=== PATIENT | female | born 1995 | race African-American/Black ===

== ENCOUNTER 2016-07-24 21:11 | Emergency (ER) | payer SELFPAY ==
[~2016-07-24 21:11] MED LIST: CEPH500C3 PO; NORC7.5T PO; WALKER STANDARD
[2016-07-24 21:13] VITALS: BP 121/77; PULSE 57; RESP 16; TEMP 98; O2SAT 99
[2016-07-24] MEDS ORDERED: cefTRIAXone 250 MG VIAL IM ONE (21:45)
[2016-07-24] MEDS ORDERED: AZITHROMYCIN PWD FOR SUSP 1 GM PACKET PO ONE (21:45)
[2016-07-24] MEDS ORDERED: LIDOCAINE HCL 1% 50 ML VIAL INFIL ONE (22:00)
[2016-07-24 22:05] LABS: BLOOD, URINE NEG (NEG); COMMENT (UR) CULT NOT INDICATED; CULTURE IF INDICATED CULT NOT INDICATED; GLUCOSE,URINE NEG (NEG); KETONE, URINE NEG (NEG); NITRITE,URINE NEG (NEG); SQUAMOUS EPITHELIAL CELL URINE 5 /hpf (0-5); URINE COLOR LIGHT-YELLOW (YELLW/STRAW)
--- NOTE | 2016-07-24 22:27 | PD ---
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 She says she noticed a lesion on her vagina and was concerned it was herpes. She also reports some vaginal discharge. She denies abdominal pain, nausea or vomiting. She denies dysuria. She denies fever or chills. She is sexually active and does not use protection. PFSH Past Medical History Blood Disorders: No Cancer: No Cardiovascular Problems: No Diminished Hearing: No Endocrine: No Gastrointestinal Disorders: No Genitourinary: No Immune Disorder: No Musculoskeletal: No Neurologic: No Psychiatric: No Reproductive: No Respiratory: No Immunizations Current: Yes Influenza Vaccination: No ?: Unknown LMP: PT STATES LAST WEEK Past Surgical History Other Surgery: No Social History Alcohol Use: No Tobacco Use: No Substance Use: Yes (marijuana) Allergies-Medications (Allergen,Severity, Reaction): Coded Allergies: No Known Allergies (Unverified , 07/24/16) Reported Meds & Prescriptions Reported Meds & Active Scripts Active No Active Prescriptions or Reported Medications Review of Systems Except as stated in HPI: all other systems reviewed are Neg General / Constitutional: No: Fever, Chills Eyes: No: Blurred Vision HENT: No: Headaches, Lightheadedness Cardiovascular: No: Chest Pain or Discomfort Respiratory: No: Shortness of Breath Gastrointestinal: No: Nausea, Vomiting, Abdominal Pain Genitourinary: Positive: Discharge, No: Dysuria Skin: No Change in Pigmentation Neurologic: No: Weakness, Dizziness Physical Exam Narrative GENERAL: Awake and alert in no acute distress. SKIN: Warm and dry. HEAD: Atraumatic. Normocephalic. EYES: Pupils equal and round. No scleral icterus. ENT: Mucous membranes pink and moist. NECK: Trachea midline. No JVD. CARDIOVASCULAR: Regular rate and rhythm. No murmur appreciated. RESPIRATORY: No accessory muscle use. Clear to auscultation. Breath sounds equal bilaterally. GASTROINTESTINAL: Abdomen soft, non-tender, nondistended. PELVIC: abrasion just above the clitoris. thick white discharge. no cervical lesions. no cmt MUSCULOSKELETAL: No obvious deformities. No clubbing. No cyanosis. No edema. NEUROLOGICAL: Awake and alert. No obvious cranial nerve deficits. Motor grossly within normal limits. Normal speech. PSYCHIATRIC: Appropriate mood and affect; insight and judgment normal. Data Data Last Documented VS Vital Signs Date Time Temp Pulse Resp B/P Pulse Ox O2 Delivery O2 Flow Rate FiO2 07/24/16 21:13 98.0 57 16 121/77 99 Room Air Orders Urinalysis - C+S If Indicated (07/24/16 21:33) Wet Prep Profile (07/24/16 21:33) Gc And Chlamydia Pcr (07/24/16 21:33) Ceftriaxone Inj (Rocephin Inj) (07/24/16 21:45) Azithromycin Powd Pack (Zithromax Powd P (07/24/16 21:45) Lidocaine 1% Inj (50 Ml) (Xylocaine 1% I (07/24/16 22:00) Labs Laboratory Tests Test 07/24/16 21:42 Urine Color LIGHT-YELLOW Urine Turbidity CLEAR Urine pH 6.0 Urine Specific [place] 1.010 Urine Protein NEG mg/dL Urine Glucose (UA) NEG mg/dL Urine Ketones NEG mg/dL Urine Occult Blood NEG Urine Nitrite NEG Urine Bilirubin NEG Urine Urobilinogen LESS THAN 2.0 MG/DL Urine Leukocyte Esterase MOD Urine RBC 1 /hpf Urine WBC 2 /hpf Urine Squamous Epithelial 5 /hpf Cells Microscopic Urinalysis Comment CULT NOT INDICATED Clue Cells (Wet Prep) NONE SEEN Vaginal Trichomonas (Wet Prep) NONE SEEN Vaginal Yeast (Wet Prep) NONE SEEN Chlamydia trachomatis DNA NOT DETECTED (PCR) Neisseria gonorrhoeae DNA NOT DETECTED (PCR) MDM Medical Decision Making Medical Screen Exam Complete: Yes Emergency Medical Condition: Yes Differential Diagnosis A UTI versus GC/chlamydia versus herpes versus vaginal irritation Narrative Course Patient is a 20-year-old female who comes in with vaginal complaints. Exam shows an irritation just above the clitoris. There is whitish discharge. Swab sent to check for GC/chlamydia. Patient treated prophylactically with azithromycin and Rocephin. Patient advised to use protection when having intercourse. Advised to refrain from sexual intercourse for the next week. Diagnosis Primary Impression: Vaginal discharge Patient Instructions: Cervicitis (ED), General Instructions Additional Instructions: Follow up with gynecology. Avoid sexual intercourse for the next week. You will receive a letter if your testing for gonorrhea and chlamydia testing is positive. Your partner will need to be treated if it is positive. You have already been treated. Return to the ED as needed for any worsening symptoms. Scripts No Active Prescriptions or Reported Meds Disposition: 01 DISCHARGE HOME Condition: Stable Nola Loza MD Jul 24, 2016 22:26
[2016-07-25 00:09] LABS: CHLAMYDIA PCR NOT DETECTED (NOT DETECT); NEISSERIA PCR NOT DETECTED (NOT DETECT)
== END 2016-07-24 22:35 | disposition home or self-care (01) ==
LOC: NEPC 21:11
DX: N89.8 Other specified noninflammatory disorders of vagina (principal)
CPT/HCPCS: 81001; 87210; 87491; 87591; 96372; 99283; J0696

== ENCOUNTER 2016-10-25 13:41 | Emergency (ER) | payer OTHER ==
[~2016-10-25] VITALS: Ht 162.6 cm; Wt 75.0 kg
[2016-10-25 13:42] VITALS: BP 130/67; PULSE 72; RESP 15; TEMP 98; O2SAT 100
[2016-10-25 15:11] LABS: BACTERIA, URINE OCC /hpf; BLOOD, URINE NEG (NEG); COMMENT (UR) CULT NOT INDICATED; CULTURE IF INDICATED CULT NOT INDICATED; GLUCOSE,URINE NEG (NEG); KETONE, URINE NEG (NEG); NITRITE,URINE NEG (NEG); SQUAMOUS EPITHELIAL CELL URINE 4 /hpf (0-5); URINE COLOR YELLOW (YELLW/STRAW)
--- NOTE | 2016-10-25 15:28 | PD ---
HPI Chief Complaint: Related Problem Time Seen by Provider: 15:24 Travel History International Travel<30 days: No Contact w/Intl Traveler<30days: No Traveled to known affect area: No History of Present Illness HPI 20-year-old female that presents to the ED for evaluation of possible . Per patient last menstrual period Was about a month ago. Per patient she currently has a 6-month-old she's been having unprotected sex. Per patient she did a test at home because today she was having some lower abdominal cramping similar to what she had when she was and did test and it was positive. She comes here essentially to get evaluated for this. Per patient she's also concerning for possible infection in the pelvic area secondary to having unprotected sex. She denies any symptoms other than the abdominal discomfort to the lower abdomen which per patient is not severe and feels similar to her previous . She denies any surgeries to the abdomen. She denies any fevers chills or sweats. No nausea or vomiting. No allergies to medication. Patient denies any other previous pregnancies alert on the last one 6 months ago. She has not seen anybody for this. Per patient the pain is 2 out of 10. PFSH Past Medical History Blood Disorders: No Cancer: No Cardiovascular Problems: No Diminished Hearing: No Endocrine: No Gastrointestinal Disorders: No Genitourinary: No Immune Disorder: No Musculoskeletal: No Neurologic: No Psychiatric: No Reproductive: No Respiratory: No Immunizations Current: Yes ?: LMP: one month ago Past Surgical History Other Surgery: No Social History Alcohol Use: No Tobacco Use: No Substance Use: Yes (marijuana) Allergies-Medications (Allergen,Severity, Reaction): Coded Allergies: No Known Allergies (Unverified , 07/24/16) Reported Meds & Prescriptions Reported Meds & Active Scripts Active Monistat 3 Combination Pa 200-2 mg-% (Miconazole Nitrate Vaginal & W) 1 Kit Kit 1 Mg VAGINAL BID 10 Days Plus Iron 29-1 mg ( Vit-Iron Carbonyl) 1 Tab Tab 1 Tab PO DAILY Review of Systems Except as stated in HPI: all other systems reviewed are Neg Physical Exam Narrative GENERAL: SKIN: Warm and dry. HEAD: Atraumatic. Normocephalic. EYES: Pupils equal and round. No scleral icterus. No injection or drainage. ENT: No nasal bleeding or discharge. Mucous membranes pink and moist. NECK: Trachea midline. No JVD. CARDIOVASCULAR: Regular rate and rhythm. RESPIRATORY: No accessory muscle use. Clear to auscultation. Breath sounds equal bilaterally. GASTROINTESTINAL: Abdomen soft, non-tender, nondistended. Hepatic and splenic margins not palpable. Pelvic exam: The with him and nurse present. Patient does have some whitish discharge coming from the vagina but no sign of smell or other deformity. No adnexal tenderness. No cervical tenderness with movement. MUSCULOSKELETAL: Extremities without clubbing, cyanosis, or edema. No obvious deformities. NEUROLOGICAL: Awake and alert. No obvious cranial nerve deficits. Motor grossly within normal limits. Five out of 5 muscle strength in the arms and legs. Normal speech. PSYCHIATRIC: Appropriate mood and affect; insight and judgment normal. Data Data Last Documented VS Vital Signs Date Time Temp Pulse Resp B/P Pulse Ox O2 Delivery O2 Flow Rate FiO2 10/25/16 13:42 98.0 72 15 130/67 100 Orders Urinalysis - C+S If Indicated (10/25/16 14:18) Beta Hcg (Quant/Titer) (10/25/16 14:18) Ed Urine Pregnancytest Poc (10/25/16 14:18) Gc And Chlamydia Pcr (10/25/16 14:23) Wet Prep Profile (10/25/16 14:23) Us Pelvis (Ques Preg/Ectopic) (10/25/16 ) Labs Laboratory Tests Test 10/25/16 14:50 Urine Color YELLOW Urine Turbidity CLEAR Urine pH 7.0 Urine Specific [place] 1.012 Urine Protein NEG mg/dL Urine Glucose (UA) NEG mg/dL Urine Ketones NEG mg/dL Urine Occult Blood NEG Urine Nitrite NEG Urine Bilirubin NEG Urine Urobilinogen LESS THAN 2.0 MG/DL Urine Leukocyte Esterase SMALL Urine RBC 1 /hpf Urine WBC 2 /hpf Urine Squamous Epithelial 4 /hpf Cells Urine Bacteria OCC /hpf Microscopic Urinalysis Comment CULT NOT INDICATED Clue Cells (Wet Prep) NONE SEEN Vaginal Trichomonas (Wet Prep) NONE SEEN Vaginal Yeast (Wet Prep) PRESENT Human Chorionic Gonadotropin, 5336 MIU/ML Quant MDM Medical Decision Making Medical Screen Exam Complete: Yes Emergency Medical Condition: Yes Medical Record Reviewed: Yes Interpretation(s) Wet prep positive for yeast Differential Diagnosis versus ectopic versus yeast infection versus bacterial vaginosis Narrative Course 20-year-old female that presents to the ED for evaluation of and in some abdominal pain. Patient was properly examined and was found to have signs and symptoms consistent with . Patient does have some vaginal discharge and exam but appears to be more normal than not. Culture was taken of it regardless. Culture did show positive for yeast. Patient will be treated for this with Monistat. Labs did show . Ultrasound was ordered as patient he complains some abdominal pain and concern for ectopic was present. Ultrasound was negative for this. Patient was reassured. From blood work patient appears to be about 3-4 weeks . 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 Patient was given prescription for vitamins. See ED worsening symptoms. Follow with PCP. Diagnosis Primary Impression: Vaginal discharge Additional Impression: Normal IUP (intrauterine ) on ultrasound Qualified Code: Z34.91 - Normal IUP (intrauterine ) on ultrasound, first trimester Patient Instructions: General Instructions Additional Instructions: Take medication as prescribed. You're discharged was positive for yeast, Take the Monistat as prescribed. Only take Tylenol for pain as needed. Follow up with OB care. Your about 3-4 weeks . Cannot completely assess how far along you are because fetus is still too small for us date. See ED worsening symptoms. Med/Other Pt SpecificInfo: Prescription(s) given Scripts Miconazole Nitrate Vaginal & W (Monistat 3 Combination Pa 200-2 mg-%)1 Kit Kit1 Mg VAGINAL BID 10 Days Prov:oNla Loza MD 10/25/16 Vit-Iron Carbonyl ( Plus Iron 29-1 mg)1 Tab Tab1 Tab PO DAILY #30 TAB Ref 0 Prov:Nola Loza MD 10/25/16 Disposition: 01 DISCHARGE HOME Condition: Stable Henok Mccarty Oct 25, 2016 15:28
[2016-10-25 15:49] LABS: BETA HCG QUANT 5336 MIU/ML (0-5)
[2016-10-25] MEDS ORDERED: MICO1KIT7 VAGINAL (16:13)
[2016-10-25] MEDS ORDERED: PREN29TA PO (16:13)
--- NOTE | 2016-10-25 16:26 | RADRPT ---
EXAM DATE/TIME: 10/25/2016 15:36 [facility] COMPARISON: No previous studies available for comparison. INDICATIONS : Pelvic pain with . LAB(S): Beta-[facility]C MEDICAL HISTORY : . SURGICAL HISTORY : None. ENCOUNTER: Initial ACUITY: 1 day PAIN SCORE: 3/10 LOCATION: Bilateral pelvis MEASUREMENTS: UTERUS: 9.9 x 6.5 x 4.4 cm ENDOMETRIAL STRIPE: 13 mm RIGHT OVARY: 3.2 x 3.2 x 1.9 cm LEFT OVARY: 3.1 x 2.6 x 2.0 cm FREE FLUID: Yes Trace in posterior cul de sac. CROWN RUMP LENGTH: Non visualized. = WKS DAYS FHR: Non visualized. BPM FINDINGS: Patient declined transvaginal exam. Gestational sac and yolk sac are visualized but no pole is seen. There is a probable corpus luteum cyst right ovary measuring about 2.8 x 2.9 x 2.3 cm. Left ova ry unremarkable. Trace free fluid in the cul-de-sac. CONCLUSION: 1. Examination is positive for gestational sac and yolk sac but no pole is seen and measurement s are too small for accurate dating. Toby Cole MD on October 25, 2016 at 16:21 Board Certified Radiologist. This report was verified electronically.
[2016-10-25 20:48] LABS: CHLAMYDIA PCR NOT DETECTED (NOT DETECT); NEISSERIA PCR NOT DETECTED (NOT DETECT)
== END 2016-10-25 16:38 | disposition home or self-care (01) ==
LOC: NEPD 13:41
DX: O26.891 Other specified pregnancy related conditions, first trimester (principal); R10.30 Lower abdominal pain, unspecified; O98.811 Other maternal infectious and parasitic diseases complicating pregnancy, first trimester; B37.3 Candidiasis of vulva and vagina; Z3A.01 Less than 8 weeks gestation of pregnancy
CPT/HCPCS: 76700; 81001; 84702; 84703; 87210; 87491; 87591

== ENCOUNTER 2016-11-05 12:51 | Emergency (ER) | payer SELFPAY ==
[~2016-11-05] VITALS: Ht 167.6 cm; Wt 80.0 kg
[~2016-11-05 12:51] MED LIST changes: -CEPH500C3 PO; +MICO1KIT7 VAGINAL; -NORC7.5T PO; +PREN29TA PO; -WALKER STANDARD
[2016-11-05 12:53] VITALS: BP 116/60; PULSE 82; RESP 15; TEMP 98.2; O2SAT 98
--- NOTE | 2016-11-05 13:06 | PD ---
HPI Chief Complaint: Related Problem Time Seen by Provider: 13:05 Travel History International Travel<30 days: No Contact w/Intl Traveler<30days: No Traveled to known affect area: No History of Present Illness HPI 20-year-old female presents to the emergency department requesting a reevaluation of her . Patient was seen 10 days ago and had intrauterine confirmed. She states she was told she is between 3-4 weeks . She would like to repeat ultrasound to see if her continues to develop. She also like reevaluation for a yeast infection that she was diagnosed with at that time. Denies any new symptoms. No abdominal pain, cramping. No nausea or vomiting. No vaginal bleeding. States that she still has a discharge similar to before but it has not changed. She has had no new sexual partners since the is it. She has no fever or chills. She has not sought follow-up with an MACHINE WIPER. She has no other symptoms to report. History Past Medical Histgory LMP: 6 weeks Hx Cancer: No Social History Alcohol Use: No Tobacco Use: No Allergies-Medications (Allergen,Severity, Reaction): Coded Allergies: No Known Allergies (Unverified , 11/05/16) Reported Meds & Prescriptions Reported Meds & Active Scripts Active Review of Systems Except as stated in HPI: all other systems reviewed are Neg Physical Exam Narrative GENERAL: Well-nourished female patient, in no acute distress SKIN: Focused skin assessment warm/dry. HEAD: Atraumatic. Normocephalic. EYES: Pupils equal and round. No scleral icterus. No injection or drainage. ENT: No nasal bleeding or discharge. Mucous membranes pink and moist. NECK: Trachea midline. No JVD. CARDIOVASCULAR: Regular rate and rhythm. No murmur appreciated. RESPIRATORY: No accessory muscle use. Clear to auscultation. Breath sounds equal bilaterally. GASTROINTESTINAL: Abdomen soft, non-tender, nondistended. Hepatic and splenic margins not palpable. MUSCULOSKELETAL: No obvious deformities. No clubbing. No cyanosis. No edema. NEUROLOGICAL: Awake and alert. No obvious cranial nerve deficits. Motor grossly within normal limits. Normal speech. PSYCHIATRIC: Appropriate mood and affect; insight and judgment normal. Data Data Last Documented VS Vital Signs Date Time Temp Pulse Resp B/P Pulse Ox O2 Delivery O2 Flow Rate FiO2 11/05/16 12:53 98.2 82 15 116/60 98 [facility] Medical Screen Exam Complete: Yes Emergency Medical Condition: No Differential Diagnosis viable versus nonviable versus vaginal discharge versus yeast infection Narrative Course 20-year-old female presents to the emergency department requesting reevaluation of symptoms that she was treated for 10 days ago and another ultrasound of her intrauterine that was diagnosed last time ultrasound. Patient has no new symptoms to report at this time. I discussed the patient with my attending physician who agrees that no emergent workup needs to be done at this time and the patient should be following up with her MACHINE WIPER. I discussed this with the patient and advise follow-up with her MACHINE WIPER. At this time there are no urgent or emergent needs for medical intervention identified. A medical screening exam was performed: At the time of evaluation the presenting medical condition was determined not to be of an emergent nature. The patient was given the option of receiving additional care, and opted to stay on the however there is no need for emergent intervention at this time. Patient will be discharged. Primary Impression: Encounter for medical screening examination Additional Impressions: Normal IUP (intrauterine ) on ultrasound Qualified Code: Z34.91 - Normal IUP (intrauterine ) on ultrasound, first trimester Vaginal discharge Patient Instructions: First Trimester (ED), General Instructions, Vaginal Discharge (ED) Additional Instructions: Follow-up with an MACHINE WIPER Return immediately with acute worsening of symptoms Med/Other Pt SpecificInfo: No Change to Meds Disposition: 01 DISCHARGE HOME Condition: Stable SandraFloresCariepaul RUIZ Nov 05, 2016 13:06
== END 2016-11-05 13:33 | disposition home or self-care (01) ==
LOC: NEPD 12:51
DX: O26.91 Pregnancy related conditions, unspecified, first trimester (principal); N89.8 Other specified noninflammatory disorders of vagina